=== PATIENT | female | born 1965 | race American Indian/Alaskan Native ===

== ENCOUNTER 2016-07-02 20:07 | Emergency (ER) | payer OTHER ==
[2016-07-02 20:46] VITALS: BP 155/100
--- NOTE | 2016-07-02 22:45 | XRay Report ---
FINAL REPORT EXAM: XR WRIST 3 LT HISTORY: Impact,wrist pain COMPARISONS: None. FINDINGS: Four views left wrist There is soft tissue swelling about the left wrist. No bone lesion, periosteal reaction, or fracture. No deformity or gross malalignment. IMPRESSION: Soft tissue swelling about the left wrist without fracture.
--- NOTE | 2016-07-02 23:49 | Emergency Department Report ---
Upper Extremity - [facility] Chief Complaint: Extremity Injury, Upper Stated Complaint: LEFT WRIST PAIN Time Seen by Provider: 07/02/16 23:47 Upper Extremity: Left Wrist Occurred When: 3 Days Mechanism: Hit with Object Severity: mild Symptoms: Yes Pain with Movement, Yes Limited Range of Movement, Yes Swelling, Yes Bruising/Ecchymosis, No Deformity, No Numbness, No Weakness, No Laceration or Abrasion Other History: This is a 50-year-old female, previously unknown to me. She is ambidextrous, uses both hands for work. The patient presents to the ER with left wrist pain after blunt trauma a few days ago. The pain is sharp, achy, increases with palpation and range of motion, and decreases with rest. There is no weakness. There is some swelling. No fevers or chills. No chest pain or shortness of breath. ED Review of Systems ROS: Stated complaint: LEFT WRIST PAIN Other details as noted in HPI Constitutional: denies: fever Eyes: denies: vision change ENT: denies: epistaxis Respiratory: denies: cough Cardiovascular: denies: chest pain Gastrointestinal: denies: abdominal pain Genitourinary: as per HPI Musculoskeletal: arthralgia, myalgia Skin: denies: lesions Neurological: denies: headache, weakness Psychiatric: denies: anxiety ED Past Medical Hx - Past Medical History Previous Medical History?: Yes Additional medical history: Obesity - Surgical History Past Surgical History?: Yes Additional Surgical History: C Section x2 - Social History Smoking Status: Never Smoker Substance Use Type: None - Medications Home Medications: Home Medications Medication Instructions Recorded Confirmed Last Taken Type HYDROcodone/APAP 7.5-325 [[place] 1 each PO Q6HR PRN #20 tablet 07/21/13 Unknown Rx 7.5/325 mg] Naproxen [Naprosyn] 500 mg PO BID PRN #30 tablet 07/21/13 Unknown Rx Promethazine [Phenergan TAB] 25 mg PO Q6H PRN #20 tablet 07/21/13 Unknown Rx Ketorolac [Toradol] 10 mg PO Q6H PRN #20 tablet 07/03/16 Unknown Rx oxyCODONE [Roxicodone] 5 mg PO Q6HR PRN #15 tablet 07/03/16 Unknown Rx Upper Extremity Exam - Exam General: Vital signs noted. No distress. Alert and acting appropriately. My normal neuro exam. Compartments are soft. No long bony tenderness or step-offs. Distal dorsal and volar wrist tenderness. No snuffbox tenderness. No pain on the thumb with axial loading. 2+ pulses in the bilateral upper extremities. Appropriate capillary refill in the bilateral upper extremities. Thumb opposition, abduction, abduction intact. FDP, FDS, lumbricals, extensors intact. Head and Torso: No HEENT Abnormality, No Neck Tenderness, No Chest/Lungs Abnormality, No Abdominal Tenderness, No Back Tenderness Shoulder Exam: Yes Normal Range of Motion in Shoulder, No Shoulder Tenderness, No Clavicle Tenderness, No Shoulder Deformity, No AC Joint Tenderness Arm Exam: No Arm/Humerus Tenderness, No Arm Deformity Elbow: Yes Normal Range of Motion in Elbow, No Elbow Tenderness, No Elbow Deformity Forearm: Yes Pain with Pronation, Yes Pain with Supination, No Forearm Tenderness, No Forearm Deformity Wrist: Yes Wrist Tenderness, Yes Normal ROM in Wrist, No Wrist Deformity, No Snuffbox Tenderness, No Pain with Axial Thumb Compression Hand: Yes Normal ROM in Digit(s), No Hand Tenderness, No Hand Deformity, No Digit Tenderness, No Digit(s) Deformity, No Tendon Dysfunction CMS Exam: No Broken Skin, No Normal Distal Pulses, No Normal Capillary Refill, No Normal Distal Sensation ED Course Vital Signs 07/02/16 20:42 Temperature 98.9 F Pulse Rate 98 H Respiratory 20 Rate Blood Pressure 155/100 [Right] O2 Sat by Pulse 100 Oximetry ED Medical Decision Making - Lab Data Vital Signs 07/02/16 20:42 Temperature 98.9 F Pulse Rate 98 H Respiratory 20 Rate Blood Pressure 155/100 [Right] O2 Sat by Pulse 100 Oximetry - Radiology Data Radiology results: report reviewed, image reviewed X-ray of the left wrist demonstrates no fracture or dislocation, soft tissue swelling is noted - Medical Decision Making Differential diagnosis: Wrist sprain, wrist strain, fracture, dislocation Assessment and plan: 50-year-old female with mild function medical mechanism to left wrist. Afebrile, reassuring vital signs with the exception of hypertension , no neurovascular deficits, tendons are intact, the patient will be placed in a wrist splint, she will be given pain medication, physical activities as tolerated, instructions to follow up with outpatient hand surgery. She may require occupational therapy in the future, this was relayed to her. Critical care attestation.: If time is entered above; I have spent that time in minutes in the direct care of this critically ill patient, excluding procedure time. ED Disposition Clinical Impression: Left wrist pain Disposition: DISCHARGED TO HOME OR SELFCARE Is pt being admited?: No Does the pt Need Aspirin: No Condition: Stable Instructions: Wrist Injury (ED), Arthralgia (ED) Additional Instructions: Rest and avoid heavy lifting. Keep the splint in place. Follow up with an orthopedic surgeon/hand specialist within the next week. It is possible that he may require occupational therapy. If taking the oxycodone, do not drive, consume alcohol, or make important decisions. Return to the ER right away with fevers, chills, chest pain, shortness of breath , confusion, nausea, vomiting, diarrhea, weakness, numbness, inability to range the affected extremity. Referrals: IRVIN ADEN MD [Staff Physician] - 3-5 Days VIRGINIA QUILES MD [Staff Physician] - 3-5 Days JULIET ANDINO MD [Staff Physician] - 3-5 Days Forms: Work/School Release Form(ED)
[2016-07-02] MEDS ORDERED: TYLENOL #3 PO ONE (23:55)
[2016-07-02] MEDS ORDERED: TORADOL PO ONE (23:55)
[2016-07-03] MEDS ORDERED: MOTRIN PO ONE ×2 (00:18→00:19)
== END 2016-07-03 00:20 | disposition home or self-care (01) ==
LOC: ED 20:07
DX: M25.532 Pain in left wrist (principal); X58.XXXA Exposure to other specified factors, initial encounter; Y93.9 Activity, unspecified; Y92.9 Unspecified place or not applicable; Y99.9 Unspecified external cause status
CPT/HCPCS: 99283